=== PATIENT | male | born 1980 | race Caucasian/White ===

== ENCOUNTER 2019-01-24 18:43 | Inpatient (IN) | payer OTHER ==
[~2019-01-24] VITALS: Ht 162.6 cm; Wt 49.2 kg
[2019-01-24 18:52] VITALS: Ht 162.6 cm; Wt 49.2 kg
--- NOTE | 2019-01-24 20:11 | NUR ---
PATIENT COMES TO ED TODAY COMPLAINING OF LEFT FOOT PAIN. PER PATIENT 2 DAYS AGO HE NOTICED A WOUND WITH ASSOCIATED SWELLING TO LEFT LATERAL FOOT PLANTAR SURFACE. PAIN IS 4/10 AT REST. WHEN AMBULATING PAIN INCREASES TO 10/10. NO OPEN WOUND NOTED. DARK DISCOLRATION NOTED TO LEFT FOOT WITH SURROUNDING TISSUE PALE/YELLOW. PROVIDED CALL LIGHT. AWAITING MSE.
--- NOTE | 2019-01-24 20:50 | NUR ---
LAB AT BEDSIDE.
--- NOTE | 2019-01-24 21:04 | NUR ---
PATIENT PROVIDED WITH URINAL AND INSTRUCTED TO PROVIDE SAMPLE FOR UA AND URINE CX.
[2019-01-24 21:10] LABS: BASOPHIL % 0.2 % (0-2); PLATELET COUNT 198 x10^3mcL (130-400)
[2019-01-24 21:16] LABS: CALCIUM 8.6 mg/dL (8.5-10.1); CARBON DIOXIDE 25.4 mmol/L (21-32); CREATININE SERUM 1.7 mg/dL (0.7-1.3)
[2019-01-24 21:28] LABS: ALBUMIN 3.5 g/dL (3.4-5.0); BILIRUBIN TOTAL 0.19 mg/dL (0.20-1.00); TOTAL PROTEIN, SERUM 7.6 g/dL (6.4-8.2)
[2019-01-24 21:56] LABS: ERYTHROCYTE SED RATE 41 mm/hr (0-15)
[2019-01-24] MEDS ORDERED: HUMULIN 70/303 ML SQ (23:26)
--- NOTE | 2019-01-25 01:03 | NUR ---
REPORT CALLED AND GIVEN TO MALISSA HSU ON [facility].
[2019-01-25] MEDS ORDERED: LEVOTHYROXIN0.025 M2 (01:05)
--- NOTE | 2019-01-25 01:31 | NUR ---
RECIEVED PT FROM ED. PT CALM AND IN NO DISTRESS. SISTER WEI AT BEDSIDE. PT IS A/O X4. ON MED SURG. DENIES ANY CHEST PAIN OR PRESSURE. PT STATES HE'S BEEN TACHY IN THE PAST. LUNGS CLEAR IN ALL FEILDS. ON RA, DENIES ANY SOB. EQUAL CHEST RISE AND FALL. NO SIGN OF RESP DISTRESS. BOWEL SOUNDS PRESENT. L FOOT HAS TWO DARK SPOTS ON L LATERAL PLANTER FOOT. BOTH CLOSED. NO DRAINAGE NOTED. PT STATED HE ONLY FEELS PAIN WHEN HE AMBULATES ON THE LEG. BANDAGE IN PLACE AND WRAPPED WITH AURELIANO DRESSING. DENIES PAIN AT THIS TIME. SALINE LOCKED ON LAC. BED IS AT LOWEST SETTING. CALL LIGHT WITHIN REACH. WILL CONTINUE TO MONTIOR.
[2019-01-25 03:00] VITALS: BP 138/80
[2019-01-25 05:42] VITALS: BP 108/65
--- NOTE | 2019-01-25 06:39 | NUR ---
PT IS RESTING IN BED. DENIES ANY PAIN OR DISTRESS AT THIS TIME. NO ACUTE EVENT OCCURED DURING SHIFT. BED IS AT LOWEST SETTING. CALL LIGHT WITHIN REACH. WILL ENDORSE TO AM NURSE.
[2019-01-25 07:06] LABS: BASOPHIL % 0.3 % (0-2); PLATELET COUNT 188 x10^3mcL (130-400)
--- NOTE | 2019-01-25 07:20 | NUR ---
RECIEVED PT RESTING IN BED WITH NO C/O DISTRESS OR SOB. A/O X4 WITH NO BENITO OR DIZZINESS. LUNGS CTAB. LAC IV INTACT AND PATENT WITH NO REDNESS OR INFLAMMATION. SAFETY PRECAUTIONS IN PLACE, CALL LIGHT WITHIN REACH, WILL MONITOR.
[2019-01-25 07:24] LABS: RED CELL DISTRIBUTION WIDTH 18.2 % (11.5-14.5)
[2019-01-25 08:17] VITALS: BP 99/65
--- NOTE | 2019-01-25 13:49 | NUR ---
PT C/O NUMB MOUTH AREA AND SWEATING, BS CHECKED AND RESULT 41. CHARGE NOTIFIES AND PRN 50%/50ML DEXTROSE GIVEN. WILL REASSESS BS IN 15 MIN.
--- NOTE | 2019-01-25 14:03 | NUR ---
RECHECKED PT BS: 274. CHARGE NOTIFIED AND DR ADAME NOTIFIED. NO NEW ORDERS AT THIS TIME, WILL MONITOR. PT STATES HE FEELS BETTER AND ASYMPTOMATIC.
[2019-01-25 16:49] VITALS: BP 129/63
--- NOTE | 2019-01-25 19:18 | NUR ---
I/D FINISHED BY DR JOHNSON AND WRAPPER REWINDER. BEFORE AND AFTER PICTURES TAKEN. ONSENT SIGNED BY PT AND IN CHART. PT VERBALIZED UNDERSTAND OF PROCEDURE AND CONCENT.
--- NOTE | 2019-01-25 19:30 | NUR ---
PT IS A/O x4. ON MED SURG. DENIES ANY CHEST PAIN OR PRESSURE. UNABLE TO FEEL L PEDIAL PULSE D/T 1ST DRESSING OF I&D WITH SOFT TISSUE DEBRIDEMENT TODAY. DRESSING IS CLEAN AND INTACT. PT DENIES ANY NUMBNESS OR TINGLING. NO EDEMA NOTED. LUNGS CLEAR IN ALL FEILDS. ON RA, DENIES ANY SOB. EQUAL CHEST RISE AND FALL. NO SIGN OF RESP DISTRESS. BOWEL SOUNDS PRESENT x4. DENIES ANY ABD PAIN OR DISTRESS. DENIES PAIN AT THIS TIME. SALINE LOCKED ON LAC INTACT AND PATENT. FATHER AT BEDSIDE. BED IS AT LOWEST SETTING. CALL LIGHT WITHIN REACH. WILL CONTINUE TO MONITOR.
--- NOTE | 2019-01-25 20:06 | NUR ---
PT STABLE AT THIS TIME WITH NO C/O PAIN, DISTRESS, OR SOB. TOLERATED ALL CARES WELL.IV INTACT AND PATENT WITH NO REDNESS OR INFLAMMATION NOTED. SAFETY PRECAUTIONS IN PLACE, CALL LIGHT WITHIN REACH, WILL ENDORSE CARE TO NIGHT NURSE.
[2019-01-25 21:35] VITALS: BP 123/73
--- NOTE | 2019-01-26 01:22 | NUR ---
PT IS RESTING IN BED WITH BOTH EYES CLOSED. BREATHING EVEN AND UNLABORED. NO SIGN OF DISTRESS NOTED. BED IS AT LOWEST SETTING. CALL LIGHT WITHIN REACH. BED IS AT LOWEST SETTING. CALL LIGHT WITHIN REACH. WILL CONTINUE TO MONTIOR.
[2019-01-26 06:21] VITALS: BP 111/64
--- NOTE | 2019-01-26 06:33 | NUR ---
PT IS RESTING IN BED. DENIES ANY PAIN OR DISTRESS. NO ACUTE EVENT OCCURED AT NIGHT. DRESSING IS INTACT. BED IS AT LOWEST SETTING. CALL LIGHT WIHTIN REACH. WILL ENDORSE TO AM NURSE.
[2019-01-26 06:55] LABS: CALCIUM 8.3 mg/dL (8.5-10.1); CARBON DIOXIDE 26.3 mmol/L (21-32); CREATININE SERUM 1.5 mg/dL (0.7-1.3); POTASSIUM SERUM 4.7 mmol/L (3.5-5.1)
[2019-01-26 07:25] VITALS: BP 127/72
--- NOTE | 2019-01-26 09:40 | NUR ---
AM SCHEDULED MEDS GIVEN. DENIES PAIN AT THIS TIME TO LEFT FOOT DEBRIDEMENT SITE, DRSG CHANGED BY ONLINE CONTENT EDITOR THIS AM. S/L TO LAC INTACT AND PATENT. ON VANCOMYCIN Q 12HRS, ROCEPHIN Q 24HRS AND FLAGYL PO Q 8HRS. PLAN OF CARE DISCUSSED. CALL LIGHT PLACED WITHIN EASY REACH. SIDERAILS UP X2.
--- NOTE | 2019-01-26 10:51 | NUR ---
VANCO TROUGH 22.2, PHARMACIST MADE AWARE.
--- NOTE | 2019-01-26 14:39 | NUR ---
BACK FROM MRI VIA WHEELCHAIR. NO ANY DISTRESS NOTED.
--- NOTE | 2019-01-26 15:00 | NUR ---
SEEN WALKING USING CRUTCHES ASSISTED BY PHYSICAL THERAPIST NOTED NWB ON LEFT FOOT. NO ANY DISTRESS NOTED.
--- NOTE | 2019-01-26 15:13 | NUR ---
1. Recommend continuing [facility] diet. 2. Diabetes Diet education provided.
--- NOTE | 2019-01-26 15:13 | NUR ---
Initial Nutrition Assessment: 254/B GOPAL [place] IA HR Dx: Diabetic ulcer, L foot cellulitis PMHx: T2DM, Hepatitis C, Childhood leukemia, hypothyroidism PSHx: knee surgery 1999, no complications, Cataract surgery Labs: BG 120H, BUN 19H, CREAT 1.5H, HGB 11.6L Meds: Ativan, Colace, D50%, humulin, morphine, norco, heparin, zofran Diet: CCHO PO Intake: (01/26) lunch 80%, breakfast 100%, (01/25) 83% average Ht: 162.56cm (64") Wt: 49.1 kg (108#) BMI: 18.6 kg/m2 Bed scale: 51.7 kg IBW: 120# (54.5 kg) %IBW: 90 UBW: 108-110# Age: 38/M Food Allergies: NKFA Skin: dressing on L foot Cipriano: 20 Edema: none GI: Last BM: 01/24 Per H&P, Pt is a 38yo insulin-controlled T2DM M with history of Hep C and childhood leukemia presents with sub-5th metatarsal head lesion with overlying hyperkeratosis. RDN Visit (01/26): Patient was alert and oriented and said that he ate 50% of his breakfast this morning. Patient said that he frequently gets diarrhea but is not having it currently. Patient had debridement of diabetic foot ulceration with abscess. Problem with: N/V/D/C: none Problems with: Chewing/Swallowing: none Current appetite: good Recent wt change: none %wt change: N/A Vitamin/Supplement use: none Special diet at home: regular Physical activity: sedentary Nutrition education given: Diabetes diet education was provided using [facility] handout on 'Type 2 Diabetes Nutrition Therapy'. Concepts like high fiber diet, label reading, types of carbohydrates and portion control were discussed. Patient verbalized understanding and did not have any questions at this time. Patient had questions about food to eat to avoid diarrhea. Concept of soluble fiber was discussed. Patient was given information about Banatrol plus. Food-drug interactions: Colace- high fiber w/0210-2635 ml fluids Education given: yes Estimated Nutritional Needs Based on current body weight 49.1 kg Energy: 1470- 1720 kcal/d (30-35 kcal/kg) Protein: 59-68 g/d (1.2-1.4 g/kg) - preserve LBM/Diabetic ulcer Fluid: 1475-0659 ml/d (1 ml/kcal) or per doctor Nutrition Diagnosis 1. Increased nutrient needs related to diabetic ulcer as evidenced by debridement procedure and estimated calorie/protein needs. Intervention 1. Recommend continuing [facility] diet. 2. Diabetes Diet education provided. Monitor/Evaluate Goal: PO intake at least 75% of estimated needs Monitor: PO intake, Labs, GI function F/U in 7 days as low risk 02/02
[2019-01-26] MEDS ORDERED: FLA500 PO (16:22)
[2019-01-26] MEDS ORDERED: BACTRIM DS1 TAB PO (16:22)
[2019-01-26 16:25] VITALS: BP 123/76
[2019-01-26 16:30] VITALS: BP 127/72
--- NOTE | 2019-01-26 17:25 | NUR ---
RECEIVED ORDER TO DISCHARGE PATIENT HOME TODAY WITH HH. FOR DAILY WOUND CARE, DETAIL WOUND CARE ORDE WAS WRITTEN BY SYSTEM DISPATCHER. SPOKE TO DRIVER/GUIDE EDGARD, PER EDGARD, SHE IS UNABLE TO MAKE ARRANGEMENT FOR HOME HEALTH TO SEE PATIENT TOMORROW FOR WOUND CARE AT THIS TIME DUE TO ALREAY PAST [address] ADAME'S OFFICE AND REQUESTED TO PAGE DR. WILKINSON WHO IS COVERING FOR DR. ADAME AFTER 5 PM.
--- NOTE | 2019-01-26 18:00 | NUR ---
NO RESPOND FROM DR. IVERSON, PAGED WHO IS COVERING FOR DR. ADAME'Javad AT THIS TIME.
--- NOTE | 2019-01-26 18:08 | NUR ---
RECEIVED PT FROM RN BALAIN. IN BED. RESP EQUAL AND UNLABORED, WILL CONTINUE TO MONITOR
--- NOTE | 2019-01-26 18:37 | NUR ---
RECEICED CALL BACK FROM DR. HALL, WILL DISCHARGE PATIENT TOMORROW ONCE FOR WOUND CARE ARRANGED. PATIENT MADE AWARE.
--- NOTE | 2019-01-26 19:05 | NUR ---
CARE ASSUMED FROM OUTGOING RN. PT RESTING COMFORTABLY IN BED. NO ACUTE DISTRESS NOTED. EVEN AND UNLABORED RESPIRATIONS ON RA. IVL INTACT. DENIES ANY PAIN AT THIS TIME. DRESSING TO LLE CDI. CRUTCHES AND SURGICAL SHOE AT BEDSIDE. BED IN LOWEST POSITION. SIDE RAILS UPX2. CALL LIGHT WITHIN REACH. WILL CONTINUE TO MONITOR.
[2019-01-26 20:57] VITALS: BP 138/77
--- NOTE | 2019-01-27 00:11 | NUR ---
PT ASLEEP COMFORTABLY IN BED. NO ACUTE DISTRESS NOTED. EVEN AND UNLABORED RESPIRATIONS ON RA. IV PATENT AND INTACT RUNNING ANTIBIOTICS PER EMAR. DRESSING TO LEFT FOOT CDI. BED IN LOWEST POSITION. SIDE RAILS UPX2. CALL LIGHT WITHIN REACH. WILL CONTINUE TO MONITOR.
[2019-01-27 06:01] VITALS: BP 113/72
--- NOTE | 2019-01-27 06:26 | NUR ---
PT SLEPT COMFORTABLY IN INTERVALS THROUGHOUT THE SHIFT. NO ACUTE CHANGES NOTED. EVEN AND UNLABORED RESPIRATIONS ON RA. IVL PATENT AND INTACT. DRESSING TO LEFT FOOT CDI. ALL NEEDS TENDED TO AND MET. SCHEDULED MEDICATIONS GIVEN. HUMULIN 70/30 HELD. BLOOD SUGARS 160 AND 91 COVERED PER SLIDING SCALE. BED IN LOWEST POSITION. SIDE RAILS UPX2. CALL LIGHT WITHIN REACH. WILL ENDORSE TO ONCOMING SHIFT.
[2019-01-27 06:50] LABS: CARBON DIOXIDE 26.8 mmol/L (21-32); CREATININE SERUM 1.6 mg/dL (0.7-1.3); POTASSIUM SERUM 5.3 mmol/L (3.5-5.1)
--- NOTE | 2019-01-27 07:44 | NUR ---
AWAKE, ALERT AND ORIENTED. IN NO RESP. DISTRESS.VS WNL. DRESSING TO LT FOOR D/C/I. NO C/O PAIN OR DISCOMFORT AT THIS TIME. HL PATENT. CALL LIGHT WITHIN REACH. WILL CONTINUE WITH PLAN OF CARE.
[2019-01-27 08:26] VITALS: BP 106/70
--- NOTE | 2019-01-27 15:24 | NUR ---
RESTING IN NO DISTRESS, DENIES ANY PAIN OR DISCOMFORT.
[2019-01-27 16:23] VITALS: BP 126/69
--- NOTE | 2019-01-27 17:36 | NUR ---
WOUND CARE TO LT FOOT DONE. SITE IRRIGATED AND CLEANED WITH NS PER ORDER. LT PLANTER WOUND PACKED WITH IODOFORM. GAUZE FOLDED BETWEEN TOES AND COVERED WITH 4X4 WITH KERLIX WRAP AROUND AND SECURED WITH AURELIANO WRAP. PT TOLERATED WELL. NO C/O PAIN OR DISCOMFORT. PHOTO TAKEN FOT DC. PT WILL BE DC'D HOME THIS PM.
--- NOTE | 2019-01-27 18:10 | NUR ---
PT DC'D HOME WITH PARENTS IN NO DISTRESS. AWAKE, ALERT AND ORIENTED. VS WNL. HL REMOVED AND SITE/CATH INTACT. NO REDNESS OR SWELLING NOTED. DC INSTRUCTIONS REVIEWED WITH PT AND FAMILY. PT INSTRUCTED TO SHOVEL HANDLE ASSEMBLER HIS RX AT THE PROVIDED PHARMACY. PT MADE AWARE THAT HOME HEALTH NURSE WILL CONTACT HIM FOR WOUND CARE SERVICE. COPY OF WOUND CARE ORDER GIVEN TO PT.PT PROVIDED WITH EXTRA WOUND DRESSINGS FOR PRN TILL HH NURSE F/U.NO C/O PAIN OR DISCOMFORT AT THE TIME OF DC. PERSONAL BELONGINGS TAKEN HOME.
== END 2019-01-27 18:16 | disposition home or self-care (01) | DRG 361 ==
LOC: ED 18:43 → MU 23:56
PROVIDERS: Emergency Medicine; ADMIT Internal Medicine Pulmonary Disease
PROC: 0HBNXZZ Excision of Left Foot Skin, External Approach (ICD-10-PCS; principal; 2019-01-25)
DX: L03.116 Cellulitis of left lower limb (principal); E11.42 Type 2 diabetes mellitus with diabetic polyneuropathy; E11.621 Type 2 diabetes mellitus with foot ulcer; E11.65 Type 2 diabetes mellitus with hyperglycemia; B18.2 Chronic viral hepatitis C; E03.9 Hypothyroidism, unspecified; Z85.6 Personal history of leukemia; Z79.4 Long term (current) use of insulin; Z68.1 Body mass index [BMI] 19.9 or less, adult
CPT/HCPCS: 82962; G0378; J0696; J1644; J1815; J2001; J2270; J2543; J3370; J3490; J7030; J7050; J7060; Q0092

== ENCOUNTER 2019-09-21 16:05 | Emergency (ER) | payer OTHER ==
[~2019-09-21] VITALS: Ht 162.6 cm; Wt 46.7 kg
[~2019-09-21 16:05] MED LIST: BACTRIM DS1 TAB PO; FLA500 PO; HUMULIN 70/303 ML SQ; LEVOTHYROXIN0.025 M2
[2019-09-21 16:12] VITALS: Ht 162.6 cm; Wt 46.7 kg
[2019-09-21 17:05] LABS: BASOPHIL % 0.4 % (0-2); PLATELET COUNT 236 x10^3mcL (130-400)
[2019-09-21 17:11] LABS: ALBUMIN 3.6 g/dL (3.4-5.0); BILIRUBIN TOTAL 0.33 mg/dL (0.20-1.00); CALCIUM 9.2 mg/dL (8.5-10.1); CARBON DIOXIDE 29.4 mmol/L (21-32); CREATININE SERUM 1.7 mg/dL (0.7-1.3); TOTAL PROTEIN, SERUM 7.6 g/dL (6.4-8.2)
[2019-09-21 17:16] LABS: POTASSIUM SERUM 5.7 mmol/L (3.5-5.1)
[2019-09-21 18:10] LABS: UA SPECIFIC GRAVITY >=1.030 (1.005-1.035); microscopic required? YES; urine erythrocyte 1+ (NEGATIVE)
[2019-09-21 18:33] LABS: AMPHETAMINE QUAL UR NONE DETECTED (See below)
[2019-09-21 21:16] VITALS: BP 138/75
== END 2019-09-21 21:16 | disposition home or self-care (01) ==
LOC: ED 16:05
PROVIDERS: Emergency Medicine
DX: N39.0 Urinary tract infection, site not specified (principal); E11.22 Type 2 diabetes mellitus with diabetic chronic kidney disease; N18.4 Chronic kidney disease, stage 4 (severe); D63.1 Anemia in chronic kidney disease; E03.9 Hypothyroidism, unspecified; R64 Cachexia; Z98.890 Other specified postprocedural states; Z88.1 Allergy status to other antibiotic agents
CPT/HCPCS: 36600; 82962; J1815; J7030; Q0092

== ENCOUNTER 2019-12-17 21:06 | Emergency (ER) | payer OTHER ==
[~2019-12-17] VITALS: Ht 160 cm; Wt 45.6 kg
[2019-12-17 21:22] VITALS: Ht 160 cm; Wt 45.6 kg
[2019-12-17 22:30] LABS: BASOPHIL % 0.4 % (0-2); PLATELET COUNT 265 x10^3mcL (130-400); RED CELL DISTRIBUTION WIDTH 12.8 % (11.5-14.5)
[2019-12-17 22:45] LABS: CARBON DIOXIDE 22.6 mmol/L (21-32); CREATININE SERUM 2.5 mg/dL (0.7-1.3)
[2019-12-17 22:51] LABS: BILIRUBIN TOTAL 0.26 mg/dL (0.20-1.00); C REACTIVE PROTEIN 2.3 mg/dL (<=0.9); TOTAL PROTEIN, SERUM 7.5 g/dL (6.4-8.2); URIC ACID 7.8 mg/dL (3.5-7.2)
[2019-12-17 22:55] LABS: ALBUMIN 3.3 g/dL (3.4-5.0)
[2019-12-18 01:13] VITALS: BP 117/62
== END 2019-12-18 01:13 | disposition home or self-care (01) ==
LOC: ED 21:06
PROVIDERS: Emergency Medicine
DX: E11.621 Type 2 diabetes mellitus with foot ulcer (principal); Z86.19 Personal history of other infectious and parasitic diseases; Z86.2 Personal history of diseases of the blood and blood-forming organs and certain disorders involving the immune mechanism; Z88.1 Allergy status to other antibiotic agents; Z98.890 Other specified postprocedural states
CPT/HCPCS: J0696; J7030; Q0092

== ENCOUNTER 2020-08-09 14:04 | Emergency (ER) | payer OTHER ==
[~2020-08-09] VITALS: Ht 160 cm; Wt 46.3 kg
[2020-08-09 14:44] VITALS: Ht 160 cm; Wt 46.3 kg
[2020-08-09 16:42] VITALS: BP 114/71
== END 2020-08-09 16:42 | disposition home or self-care (01) ==
LOC: ED 14:04
DX: K08.89 Other specified disorders of teeth and supporting structures (principal); E11.9 Type 2 diabetes mellitus without complications; Z98.890 Other specified postprocedural states; Z88.1 Allergy status to other antibiotic agents